=== PATIENT | female | born 1990 | race Two or more races ===

== ENCOUNTER 2024-05-29 10:49 | Day surgery (SDC) | payer BC ==
[~2024-05-29] VITALS: Ht 154.9 cm; Wt 63.5 kg
[2024-05-29] MEDS ORDERED: KETAMINE 50mg/ML 10ml Vial (500mg/10ml) IV ONE (10:50)
[2024-05-29] MEDS ORDERED: ceFAZolin 1GM/50ML 100 ML IV ONE (11:12)
[2024-05-29] MEDS ORDERED: LIDOCAINE 2% (LOCAL ANESTH.) PF 5ml SDV ONE (12:40)
[2024-05-29] MEDS ORDERED: DexAMETHasone SOD PHOS 10MG/1ML VIAL INJ ONE (12:40)
[2024-05-29] MEDS ORDERED: GLYCOPYRROLATE 0.2 MG/ML 1ML VIAL ONE (12:40)
[2024-05-29] MEDS ORDERED: fentaNYL CITRATE 100 MCG/2 ML VL ONE (12:40)
[2024-05-29] MEDS ORDERED: HYDROmorphone HCL 2 MG/ML VL/or syr ONE (12:40)
[2024-05-29] MEDS ORDERED: KETOROLAC TROMETH 30 MG/ML 1ML VIAL ONE (12:40)
[2024-05-29] MEDS ORDERED: MIDAZOLAM HCL 2MG/2ML 2ml VIAL (1mg/ml) ONE (12:40)
[2024-05-29] MEDS ORDERED: PROPOFOL 10 MG/ML 20 ML IV ONE (12:40)
[2024-05-29 14:09] VITALS: PULSE 75; RESP 28; TEMP 97.2; O2SAT 100
--- NOTE | 2024-05-29 14:20 | DVHOP2 ---
Operative Report - 2 Report Details Date: 05/29/24 Preop Diagnosis: Right ankle trimalleolar fracture Postop Diagnosis: Right ankle trimalleolar fracture Surgeon: Jessica Ibanez MD Cellars Supervisor: Rosalee JANE Anesthesiologist: Abner Anesthesia: General Implant: Arthrex seven hole 1/3 tubular plate with seven screws laterally and two cannulated screws medially Consent: The patient was informed of the risks and benefits of the procedure. These include but are not limited to complications of anesthesia, postoperative infection, incomplete relief of symptoms, recurrence of symptoms, damage to blood vessels, nerves and tendons, deep venous thrombosis, pulmonary embolism and possible need for repeat surgery in the future. Complications: None Estimated Blood Loss: 5 cc Fluids: See anesthesia record Findings: Trimalleolar fracture with displacement, syndesmosis stable Indications for Surgery: Right ankle unstable fracture pattern Name of Procedure Performed Right ankle trimalleolar fracture open reduction internal fixation without posterior lip fixation, C-arm fluoroscopy Procedure Details Procedure Details: Patient was brought to the operating room and placed on the table in supine position. General anesthetic was given. Preop patient received IV Ancef. The splint was removed from the right lower extremity. Tourniquet applied to the right thigh. Right lower extremity was prepped and draped in sterile fashion. Surgical time-out was performed verifying patient, laterality, and procedure. I 1st brought in C-arm to help positioning of my incisions and identifying the location of her fractures. I then elevated, exsanguinated with Esmarch and tourniquet inflated to 250 mm Hg. An incision was made laterally over the distal fibula lateral malleolus carried sharply to bone I elevated soft tissue off the underlying bone. I identified the fracture site and elevated periosteum at the fracture site and used periosteum to remove fracture hematoma. With a traction rotation I was able to reduce the fracture and hold it with tenaculum. I then drilled the proximal anterior fragment with a three five drill bit and the distal posterior fragment with a two five drill bit through a top hat. Measured for length and inserted a cortical interfragmentary screw with fixation maintained. Tenaculum removed I then applied a seven hole 1/3 tubular plate to the lateral malleolus distal fibula and fixed it distally with a cancellous screw and proximally with a cortical screw. Screw technique involved drilling, measuring with depth gauge and application of screw. C-arm was brought in to verify fracture reduction hardware placement. I then placed two additional cancellous screws distally and another cortical screw proximally and checked reduction and hardware position with C-arm. I then made incision medially and elevated soft tissue off the fracture site and reduced the fracture and placed two guidewires. I then drilled over one of the guidewires and applied a 50 mm partially threaded 4-0 cannulated screw. In similar fashion I applied a 2nd screw. However this one I felt was a little bit too anterior so I redirected another guidewire and again drilled and placed a 40 mm partially threaded cannulated screw. I obtained multiple x-rays confirming fracture reduction and hardware placement. I did a push-pull and external rotation test and verified stability of the syndesmosis. Guidewires were removed. I irrigated copiously normal saline bulb syringe. I repaired the subQ with 2-0 Vicryl skin with elly at both wounds. We applied sterile dressing followed by bulky cotton Vin Waller type wrap with stirrup type splint. Patient tolerated the procedure well was brought to recovery room in stable condition. Condition Stable Disposition Still a Patient JESSICA IBANEZ MD May 29, 2024 14:20
[2024-05-29 14:24] VITALS: PULSE 96; RESP 19; O2SAT 100
[2024-05-29] MEDS ORDERED: ONDANSETRON HCL 4 MG/2 ML VIAL IV ONE (14:30)
[2024-05-29] MEDS: HYDROmorphone HCL 2 MG/ML VL/or syr IV PRN (14:33)
[2024-05-29 15:54] VITALS: BP 132/82; PULSE 94; RESP 14; O2SAT 98
--- NOTE | 2024-05-29 18:41 | DVH ---
C-ARM FLUOROSCOPY: PROCEDURE: Right ankle ORIF FLUOROSCOPY TIME: 1 minute 21 seconds DAP: 1 mgy FINDINGS: Spot intraoperative C arm radiographs demonstrating right ankle ORIF. IMPRESSION: Please refer to surgical report for detailed findings.
== END 2024-05-29 16:20 | disposition home or self-care (01) ==
LOC: SUR 10:49
PROVIDERS: ATTEND Orthopaedic Surgery
DX: S82.851A Displaced trimalleolar fracture of right lower leg, initial encounter for closed fracture (principal); I10 Essential (primary) hypertension; Z79.899 Other long term (current) drug therapy; Z98.82 Breast implant status; Z98.890 Other specified postprocedural states; X58.XXXA Exposure to other specified factors, initial encounter; Y93.89 Activity, other specified; Y92.89 Other specified places as the place of occurrence of the external cause; Y99.8 Other external cause status
CPT/HCPCS: 27822; 73600; C1713; J0690; J1100; J1171; J1885; J2003; J2250; J2704; J3010; 76000